=== PATIENT | female | born 1955 | race Caucasian/White ===

== ENCOUNTER 2018-02-19 19:58 | Emergency (ER) | payer OTHER ==
[2018-02-19] MEDS ORDERED: Sodium Chloride 0.9% 1,000 ML IV ONE (20:43)
--- NOTE | 2018-02-19 20:44 | C.PDOC ---
History Of Present Illness 62 year old female presents to the ED c/o lower abdominal pain and dysuria that has been intermittent for the past 3 days. Patient also states having some fever. Patient has prior history of kidney stones. Patient denies nausea, vomit, diarrhea, hematuria, back pain, weakness, numbness. Chief Complaint (Nursing): Abdominal Pain History Per: Patient History/Exam Limitations: no limitations Onset/Duration Of Symptoms: Days (3), Intermittent Episodes Current Symptoms Are (Timing): Still Present Location Of Pain/Discomfort: RLQ, LLQ Radiation Of Pain To:: None Quality Of Discomfort: "Pain" Associated Symptoms: Urinary Symptoms. denies: Nausea, Vomiting, Diarrhea Exacerbating Factors: None Alleviating Factors: None Recent travel outside of the [place]: No Additional History Per: Patient Abnormal Vaginal Bleeding: No Past Medical History Reviewed: Historical Data, Nursing Documentation, Vital Signs Vital Signs: Last Vital Signs Temp 100 F H 02/19/18 20:01 Pulse 110 H 02/19/18 20:01 Resp 20 02/19/18 20:01 BP 145/79 02/19/18 20:01 Pulse Ox 95 02/19/18 20:01 - Medical History PMH: HTN, Hyperlipidemia Surgical History: No Surg Hx Family History: States: Unknown Family Hx - Social History Hx Tobacco Use: No Hx Alcohol Use: No Hx Substance Use: No - Immunization History Hx Tetanus Toxoid Vaccination: No Hx Influenza Vaccination: No Hx Pneumococcal Vaccination: No Review Of Systems Constitutional: Positive for: Fever. Negative for: Chills Cardiovascular: Negative for: Chest Pain Respiratory: Negative for: Shortness of Breath Gastrointestinal: Positive for: Abdominal Pain. Negative for: Nausea, Vomiting, Diarrhea Genitourinary: Positive for: Dysuria. Negative for: Hematuria Musculoskeletal: Negative for: Back Pain Neurological: Negative for: Weakness, Numbness Physical Exam - Physical Exam Appears: Non-toxic, No Acute Distress Skin: Normal Color, Warm, Dry Head: Atraumatic, Normacephalic Eye(s): bilateral: Normal Inspection Neck: Normal ROM, Supple Chest: Symmetrical Cardiovascular: Rhythm Regular Respiratory: Normal Breath Sounds, No Rales, No Rhonchi, No Wheezing Gastrointestinal/Abdominal: Soft, Tenderness (B/L lower quadrants), No Guarding, No Rebound Back: No CVA Tenderness Extremity: Normal ROM, No Tenderness, No Swelling Neurological/Psych: Oriented x3, Normal Speech, Normal Cognition Gait: Steady ED Course And Treatment - Laboratory Results Result Diagrams: 02/19/18 20:53 02/19/18 20:53 O2 Sat by Pulse Oximetry: 95 (ON RA) Pulse Ox Interpretation: Normal - CT Scan/US CT abd/pelvis Other Rad Studies (CT/US): Read By Radiologist, Radiology Report Reviewed CT/US Interpretation: EXAM: CT Abdomen and Pelvis Without IV contrast. CLINICAL HISTORY: Periumbilical pain, current uti painful urination. TECHNIQUE: Axial computed tomography images of the abdomen and pelvis without intravenous contrast. DLP not provided. CONTRAST: No IV contrast. COMPARISON: None provided. FINDINGS: LUNG BASES: The lung bases appear clear. No pleural effusions are seen. LIVER: Unremarkable. GALLBLADDER AND BILE DUCTS: The gallbladder appears within normal limits. No radioopaque gallstones are seen. No biliary ductal dilatation is evident. PANCREAS: Unremarkable. SPLEEN: Unremarkable. ADRENAL GLANDS: Unremarkable. KIDNEYS, URETERS, AND BLADDER: Two nonobstructing tiny calculi in the right kidney, mid and lower pole, measuring 1 -2 mm each. There is mild fullness of the right renal pelvis and proximal right ureter, possibly related to a tiny 1 mm stone in the mid to distal ureter (axial image 105) . No urinary calculi are seen. STOMACH AND BOWEL: Unremarkable appearance of the stomach and bowel. No evidence of bowel obstruction. No evidence suggesting enteritis or colitis. Fat containing ventral hernia. APPENDIX: No evidence of acute appendicitis on CT examination. PER ITONEUM: No free fluid. No free air. LYMPH NODES: No lymphadenopathy is evident. REPRODUCTIVE: Hysterectomy. VASCULATURE: No evidence of abdominal aortic aneurysm. BONES: No aggressive appearing osseous lesion. No acute osseous pathology evident. IMPRESSION: Mild fullness of the right renal pelvis and mild right proximal hydroureter, possibly related to a tiny stone in the mid to distal ureter. Two tiny nonobstructing right renal calculi. . Electronically signed on Feb 19, 2018 10:05:00 PM EDT by: Savannah Watson M.D., Certified by [facility], Diagnostic Radiology Medical Decision Making Medical Decision Making: Plan: * CT abd/pelvis * Labs * IV fluids * Toradol 30 mg IVP * Urine culture * UA Disposition Counseled Patient/Family Regarding: Diagnosis - Disposition Referrals: Jerrod Aguirre Jr., MD [Staff Provider] - Disposition: HOME/ ROUTINE Disposition Time: 23:20 Condition: STABLE Prescriptions: Ciprofloxacin [Cipro] 1 tab PO BID #14 tab Tamsulosin HCl [Flomax] 0.4 mg PO DAILY #7 cap.er.24h traMADol/Acetaminophen [Ultracet 325 MG-37.5 MG] 1 tab PO Q4 #14 tab Instructions: Urinary Tract Infections in Adults, Renal Colic (DC) Forms: [facility] (Romansh) - POA Present On Arrival: None - Clinical Impression Clinical Impression: Renal colic, UTI (urinary tract infection) - Scribe Statement The provider has reviewed the documentation as recorded by the Scribe Miguelangel Schneider All medical record entries made by the Scribe were at my direction and personally dictated by me. I have reviewed the chart and agree that the record accurately reflects my personal performance of the history, physical exam, medical decision making, and the department course for this patient. I have also personally directed, reviewed, and agree with the discharge instructions and disposition.
[2018-02-19] MEDS ORDERED: Sodium Chloride 0.9% 1,000 ML ONE (20:56)
[2018-02-19 21:04] LABS: BASO % 0.4 % (0.0-2.0); EOS % 0.3 % (0.0-4.0); HEMOGLOBIN 13.3 g/dL (11.0-16.0); LYMPH # 0.9 K/uL (1.0-4.3); LYMPH % 7.9 % (20.0-40.0); MEAN CELL VOLUME 79.8 fL (81.0-99.0); MEAN CORPUSCULAR HEMOGLOBIN 26.3 pg (27.0-31.0); MEAN CORPUSCULAR HGB CONC 32.9 g/dL (33.0-37.0); MEAN PLATELET VOLUME 11.9 fL (7.2-11.7); MONO # 1.1 K/uL (0.0-0.8); MONO % 9.7 % (0.0-10.0); NEUT # 9.2 K/uL (1.8-7.0); NEUT % 81.7 % (50.0-75.0); PLATELET COUNT 143 K/uL (130-400); RBC 5.08 Mil/uL (3.80-5.20); RED CELL DISTRIBUTION WIDTH 13.5 % (11.5-14.5); WHITE BLOOD COUNT 11.3 K/uL (4.8-10.8)
[2018-02-19 21:11] LABS: SQUAMOUS EPITHIAL 1 /hpf (0-5); URINE BACTERIA RARE (<OCC); URINE BILIRUBIN NEGATIVE (NEGATIVE); URINE BLOOD 2+ (NEGATIVE); URINE CLARITY Hazy (Clear); URINE COLOR Yellow (YELLOW); URINE GLUCOSE (UA) NORMAL (Normal); URINE LEUKOCYTE ESTERASE 3+ Leu/uL (Negative); URINE PROTEIN 2+ mg/dL (NEGATIVE); URINE UROBILINOGEN NORMAL mg/dL (0.2-1.0); WBC CLUMPS RARE /hpf
[2018-02-19 21:21] LABS: ALBUMIN 3.8 g/dL (3.5-5.0); ALT/SGPT 27 U/L (9-52); AST/SGOT 23 U/L (14-36); BLOOD UREA NITROGEN 13 mg/dL (7-17); CALCIUM 8.8 mg/dl (8.6-10.4); GFR NON-AFRICAN AMERICAN > 60; LIPASE 73 U/L (23-300)
[2018-02-19 21:31] LABS: BANDS 1 % (0-2); LYMPHOCYTE 5 % (20-40); MONOCYTE 9 % (0-10); NEUTROPHIL 85 % (50-75); TOTAL CELLS COUNTED 100
[2018-02-19 21:32] LABS: ANISOCYTOSIS SLIGHT; HYPOCHROMIC SLIGHT; LARGE PLATELETS PRESENT; OVALOCYTES SLIGHT; PLATELET ESTIMATE NORMAL (NORMAL); POIKILOCYTOSIS SLIGHT
[2018-02-19] MEDS ORDERED: Ciprofloxacin 400mg/200ml D5W 400 MG/200 ML BAG IVPB STA (22:16)
[2018-02-19] MEDS ORDERED: Ciprofloxacin 400mg/200ml D5W 400 MG/200 ML BAG IVPB ONE (22:31)
[2018-02-19 23:41] VITALS: BP 122/82; PULSE 88; RESP 20; TEMP 98.9; O2SAT 97
--- NOTE | 2018-02-20 08:51 | CT ---
Date of service: 02/19/2018 PROCEDURE: CT Abdomen and Pelvis without intravenous contrast HISTORY: Flank pain. COMPARISON: None. TECHNIQUE: Multiple contiguous axial images were performed through the abdomen and pelvis without the use of intravenous contrast. Subsequently, sagittal coronal reformatted images were obtained. Radiation dose: Total exam DLP = 726 mGy-cm. This CT exam was performed using one or more of the following dose reduction techniques: Automated exposure control, adjustment of the mA and/or kV according to patient size, and/or use of iterative reconstruction technique. FINDINGS: LOWER THORAX: Unremarkable. LIVER: Fatty infiltration of the liver. GALLBLADDER AND BILE DUCTS: Unremarkable. PANCREAS: Unremarkable. No gross lesion or ductal dilatation. SPLEEN: Unremarkable. ADRENALS: 3 millimeter fat containing nodule seen within the right adrenal gland which may represent a small adrenal myelolipoma. KIDNEYS AND URETERS: 2-3 nonobstructing tiny calculi in the right kidney, mid and lower pole, measuring 1-2 millimeters each. Mild fullness of the right renal collecting system and proximal right ureter, possibly related to a tiny 1-2 millimeter calculus in the mid to distal right ureter. VASCULATURE: Unremarkable. No aortic aneurysm. BOWEL: Unremarkable. No obstruction. No gross mural thickening. APPENDIX: No findings to suggest acute appendicitis. PERITONEUM: Unremarkable. No free fluid. No free air. LYMPH NODES: Unremarkable. No enlarged lymph nodes. BLADDER: Unremarkable. REPRODUCTIVE: Hysterectomy. BONES: No acute fracture. OTHER FINDINGS: Fat containing ventral hernia. IMPRESSION: Mild fullness of the right renal collecting system and proximal right ureter possibly related to a small calculus in the mid to distal right ureter. 2-3 additional small nonobstructing right renal calculi in the right kidney. 3 millimeter fat containing nodule seen within the right adrenal gland which may represent a small adrenal myelolipoma. Correlation with multiphasic CT scan may be helpful if clinically indicated. These findings were preliminarily reported at 10:05 p.m. on 02/19/[address] Savannah Watson from [employer].
== END 2018-02-19 23:42 | disposition home or self-care (01) ==
LOC: C.ER 19:58
DX: N39.0 Urinary tract infection, site not specified (principal); N23 Unspecified renal colic; E78.5 Hyperlipidemia, unspecified; I10 Essential (primary) hypertension
CPT/HCPCS: 74176; 80053; 81001; 83690; 85025; 87040; 87086; 87181; 96361; 96365; 96375; 99285; J0744; J1885; J7030